=== PATIENT | female | born 1940 | race Caucasian/White ===

== ENCOUNTER → 2017-07-22 | Outpatient (CLI) | payer MEDICARE, OTHER ==
[2017-07-22 10:06] LABS: CH 30.4; CHCM 31.1; HCT 44.2 % (34.0-46.0); HDW 2.33; HGB 13.7 gm/dL (11.4-16.0); Hypochromasia Slight; MCH 30.4 pg (25.0-35.0); MCHC 30.9 g/dL (31.0-37.0); MCV 98.4 fL (80.0-100.0); Mean Platelet Volume 6.7; RBC 4.49 m/uL (3.80-5.40); RDW 12.5 % (11.5-15.5); WBC 6.9 k/uL (3.8-10.6)
[2017-07-22 10:15] LABS: Partial Thromboplastin Time 24.6 sec (22.0-30.0); Prothrombin Time 10.4 sec (9.0-12.0)
[2017-07-22 10:35] LABS: ALT 26 U/L (9-52); AST 19 U/L (14-36); Alkaline Phosphatase 58 U/L (38-126); Anion Gap 8 mmol/L; Blood Urea Nitrogen 15 mg/dL (7-17); Calcium 9.4 mg/dL (8.4-10.2); Carbon Dioxide 27 mmol/L (22-30); Chloride 108 mmol/L (98-107); Glucose 84 mg/dL (74-99); Non-African American GFR(MDRD) 60 (>60 ml/min/1.73 sqM); Potassium 4.8 mmol/L (3.5-5.1); Sodium 143 mmol/L (137-145); Total Bilirubin 0.2 mg/dL (0.2-1.3); Total Protein 6.3 g/dL (6.3-8.2)
[2017-07-22 11:36] LABS: Appearance,Urine Clear (Clear); Bilirubin,Urine Negative (Negative); Glucose,Urine (UA) Negative (Negative); Ketones,Urine Negative (Negative); Leukocyte Esterase,Urine Small (Negative); Mucus,Urine Rare /hpf; Nitrite,Urine Negative (Negative); PH, Urine 5.5 (5.0-8.0); Particle Count 3098; Protein,Urine Negative (Negative); RBC,Urine 4 /hpf (0-5); Squamous Epithelial Cell,Urine 4 /hpf (0-4); UA Billing (MACRO vs. MICRO) MICRO; Urobilinogen,Urine <2.0 mg/dL (<2.0); WBC,Urine 1 /hpf (0-5)
== END | disposition home or self-care (01) ==
LOC: LABWHC1 09:14
PROVIDERS: ATTEND Orthopaedic Surgery
DX: Z01.812 Encounter for preprocedural laboratory examination (principal)
CPT/HCPCS: 36415; 80053; 81001; 85027; 85610; 85730; 87070

== ENCOUNTER 2017-08-13 07:08 | Inpatient (IN) | payer MEDICARE, OTHER ==
[2017-08-06 17:40] VITALS: BMI 31.3
[~2017-08-13 07:08] MED LIST: ACETAMINOPHEN TAB 500 MG TAB PO ONE; DEXAMETHASONE SOD PHOSPHATE 10 MG/ML 1 ML VIAL IV ONE; HYDROmorphone 1 MG/ML 1 ML SYRINGE IVP PRN; MELOXICAM 7.5 MG TAB PO ONE; MIDAZOLAM 2 MG/2 ML VIAL IV PRN; ONDANSETRON 4 MG/2 ML VIAL IVP ONE; TRANEXAMIC ACID 1,000 MG in SODIUM CHLORIDE 0.9% 100 ML IVPB ONE; ceFAZolin IN SWFI 2 GM/20 ML SYRINGE IVP ONE
[2017-08-13] MEDS ORDERED: ROPIVACAINE 246.25 MG, EPINEPHrine 0.5 MG, KETOROLAC 30 MG, cloNIDine HCL/PF 80 MCG, WA... MISCELLANE ONE ×5 (10:47)
[2017-08-13] MEDS ORDERED: LIDOCAINE 1% 20 ML VIAL (10MG/ML) FOR IV START INTRADERMA ONE (13:34)
[2017-08-13] MEDS: LACTATED RINGERS 1,000 ML IV SCH (13:34)
[2017-08-13 13:37] LABS: Glucose,Whole Blood 80 mg/dL (75-99)
[2017-08-13] MEDS ORDERED: MAGNESIUM HYDROXIDE 2,400 MG/10 ML CUP PO PRN (14:40)
[2017-08-13] MEDS ORDERED: NA PHOS,M-B/NA PHOS,DI-BA 133 ML ENEMA RECTAL PRN (14:40)
[2017-08-13] MEDS ORDERED: NALOXONE 0.4 MG/ML 1 ML VIAL IV PRN (14:40)
[2017-08-13] MEDS ORDERED: DIAZEPAM 5 MG TAB PO PRN ×2 (14:40)
[2017-08-13] MEDS ORDERED: ONDANSETRON 4 MG/2 ML VIAL IVP PRN (14:40)
[2017-08-13] MEDS ORDERED: HYDROmorphone 1 MG/ML 1 ML SYRINGE IVP PRN ×2 (14:40)
[2017-08-13] MEDS ORDERED: BISACODYL 10 MG SUPP RECTAL PRN (14:40)
[2017-08-13] MEDS ORDERED: HYDROcodone/APAP 5-325MG 1 EACH TAB PO PRN ×2 (14:40)
[2017-08-13] MEDS ORDERED: ROPIVACAINE 1,100 MG, SODIUM CHLORIDE 0.9% 330 ML MISCELLANE PRN ×2 (15:08)
--- NOTE | 2017-08-13 15:10 | P.ONQ ---
Anesthesiology Proc Note - PNB - Peripheral Nerve Block Performed Right Adductor Canal Indication: Acute Post-Operative Pain, Requested by physician (Dr Alan Humphreys ) Sedation Type: Sedate with meaningful contact maintained Preparation: Sterile Dressing Position: Supine Catheter: Indwelling Needle Types: Other (see comment) (Maria [place] Carmen) Needle Size: 100mm (4") Needle Gauge: 20 Technique: Ultrasound Injectate: 0.5% Ropivacaine (see comment for volume) (20cc) Blood Aspirated: No Pain Paresthesia on Injection Noted: No Resistance on Injection: Normal Events: Uneventful and Well Tolerated
[2017-08-13] MEDS ORDERED: SODIUM CHLORIDE 0.9% 100 ML BAG ONE (15:29)
[2017-08-13] MEDS ORDERED: fentaNYL (PF) 50 MCG/ML 2 ML AMP ONE (15:29)
[2017-08-13] MEDS ORDERED: ePHEDrine SULFATE/0.9% NACL/PF 50 MG/5 ML SYRINGE IV ONE (15:29)
[2017-08-13] MEDS ORDERED: PROPOFOL 10 MG/ML 20 ML VIAL IV ONE (15:29)
[2017-08-13] MEDS ORDERED: TRANEXAMIC ACID 1,000 MG/10 ML VIAL ONE (15:29)
[2017-08-13] MEDS ORDERED: MIDAZOLAM 2 MG/2 ML VIAL ONE (15:29)
[2017-08-13] MEDS ORDERED: ceFAZolin 1,000 MG/50 ML BAG (PMX) IV ONE (15:42)
[2017-08-13] MEDS ORDERED: ceFAZolin 3,000 MG in SODIUM CHLORIDE 0.9% IRRIGATIO 3,000 ML IRRIGATION ONE (16:31)
--- NOTE | 2017-08-13 16:52 | P.OP ---
Date of Procedure: 08/13/17 Preoperative Diagnosis: Severe osteoarthritis right knee Postoperative Diagnosis: Severe osteoarthritis right knee Procedure(s) Performed: Right total knee arthroplasty Implants: [employer] Nephew Oxinium femoral component size 5, right narrow Kenny [employer] Nephew Domi II right nonporous tibial baseplate size 5 Kenny [employer] Nephew size 11 mm Legion XLPE dished articular insert, size 4-5 Kenny [employer] Nephew Domi II resurfacing patellar component, 32 mm All components were cemented using Lenora bone cement.. The articulation is Oxinium on polyethylene. Anesthesia: spinal Surgeon: Alan Humphreys Examination Grader #1: Kat Pool Estimated Blood Loss (ml): 50 Pathology: other (Bone and cartilage) Condition: stable Disposition: PACU Indications for Procedure: After failure of conservative treatment we discussed the surgical and nonsurgical treatment options at length. Patient wishes to proceed with a total knee arthroplasty. Complications specific to this procedure were discussed at length, including but not limited to infection, bleeding, stiffness , and nerve injury. Patient is aware of all these complications and informed consent was obtained Operative Findings: The operative findings are consistent with severe osteoarthritis of the right knee Description of Procedure: Patient was seen in the preoperative area consent was reviewed and operative site was marked with a skin marker. An adductor canal pain catheter was placed by anesthesia in the preoperative area. Patient was then brought to the operating room and given preoperative antibiotics intravenously. A spinal anesthetic was administered by the anesthesia department. A tourniquet was placed on the upper thigh and the lower extremity was prepped and draped in usual sterile fashion. A gram of transexamic acid was given. A universal timeout was then performed which confirmed the patient's name, surgical site, ALLERGIES, and consent. The lower extremity was then exsanguinated and tourniquet was inflated to 250 mmHg. A standard and anterior midline approach to the knee was performed. The skin and subcutaneous tissue was dissected down to the patellar tendon. A medial parapatellar arthrotomy was then performed. The knee was then extended, the patellar was everted, and the knee was again flexed. Anterior horns of both menisci were excised, and a release was performed to the posterior medial aspect of the knee. On gross visual inspection, there was complete loss of articular cartilage in the medial and patellofemoral joint spaces. There was also significant cartilage damage in the lateral compartment. There were multiple periarticular osteophytes which were then removed with a Ronguer. The femoral canal was then opened with the appropriate drill, and the intramedullary femoral cutting guide was then placed and set for 4 of valgus. The distal femoral cutting block was then pinned in place, and the distal femur was then cut. The cutting block was then removed and the cut was checked for flatness. Next, the sizing guide was then placed and set for 3 external rotation based off of the epicondylar axis and Whitesides line. After the femur was sized, the appropriate 4-in-1 cutting block was then pinned in place. The anterior condyles were cut without notching. The posterior and chamfer cuts were performed while protecting the collateral ligaments. The cutting block was then removed, and the femoral canal was plugged with autologous bone. Attention was then directed to the tibia. The remaining ACL was removed with a Ronguer, and the tibia was then gently subluxed forward with a large bent knee retractor. Any remaining menisci was excised. The posterior lateral corner was cauterized in order to cauterize the lateral geniculate artery. The extra medullary tibial cutting guide was then placed, set for the appropriate rotation , slope, and depth of resection. The proximal tibia cutting guide was then pinned in place. Proximal tibia was then cut and sized. Next trials were then placed with the appropriate-sized insert. The knee was able to fully extend and flex to 130 and was stable throughout all range of motion. The knee was then extended, patella everted. Patella was then measured, and then using an osteotomy guide, the patella was cut at the appropriate level. The patella was then measured and drilled and the patella trial was then placed. The knee was then taken through range of motion with the patella trial and the patella tracked normally. The knee was then extended patella trial was then removed and the patella was everted. Knee was then flexed and lug holes were drilled through the femoral trial and the femoral trial was then removed. The tibial was then exposed, and the tibial broach guide was then pinned in place after it was set for the appropriate rotation to allow for the most coverage without overhang. The tibia was then reamed and broached. The cut surfaces of bone were then irrigated with pulsatile lavage. The posterior structures were injected with the ropivacaine solution. The knee was also irrigated with Irrisept solution. The components were then opened, the cement was mixed, and the components were then cemented in place. The cement was allowed to harden with the knee in full extension. While the cement was hardening, the remaining soft tissues were then injected with a ropivacaine solution, which consisted of 246.25 mg of ropivacaine, 0.5 mg of epinephrine, 30 mg of Toradol, 80 g of clonidine, and 48.45 mL of sterile water, for a total of 100 mL of fluid injected. After the cemented hardened. The tourniquet was released, and hemostasis was obtained. A second gram of transexamic acid was given. The knee was again irrigated. The knee was again taken through range of motion and found to be stable throughout all range of motion of 0-130 , and the patella tracked normally. The fascia was then closed with #2 strata fix suture. The subcutaneous tissue was closed with 3-0 Vicryl and 3-0 strata fix. Dermabond glue was used for the skin and placed with the knee in flexion. The patient was placed in a sterile silver dressing. Patient was then transferred to recovery room in stable condition. The insurance account assistant JAQUAN Ayers was required due the complexity surgery and the need for a skilled certified surgical first assistant. She assisted in positioning, draping, retraction, and closure of the wound.
[2017-08-13] MEDS: SODIUM CHLORIDE 0.9% 1,000 ML IV SCH ×2 (18:09→23:52)
--- NOTE | 2017-08-13 18:17 | XR ---
EXAMINATION TYPE: XR knee limited RT DATE OF EXAM: 08/13/2017 COMPARISON: NONE HISTORY: Postop knee surgery. TECHNIQUE: 2 views FINDINGS: There is a right knee prosthesis. Components appear in anatomic position. IMPRESSION: Right knee prosthesis without sign of a complicating process.
[2017-08-13] MEDS ORDERED: BACLOFEN 10 MG TAB PO PRN (20:00)
[2017-08-13] MEDS ORDERED: FLUTICASONE 50MCG/SPRAY NASAL 16GM EA NOSTRIL PRN (20:00)
[2017-08-13] MEDS ORDERED: predniSONE 20 MG TAB PO PRN (20:03)
[2017-08-13] MEDS ORDERED: PSYLLIUM HUSK 100% 6 GM PACKET PO PRN (20:03)
[2017-08-13] MEDS ORDERED: ALBUTEROL NEBULIZED 2.5 MG/3 ML INHALATION PRN (20:04)
[2017-08-13] MEDS: SENNOSIDES-DOCUSATE SODIUM 1 EACH TAB PO SCH (20:10)
[2017-08-13] MEDS: traMADol 50 MG TAB PO PRN (20:10)
[2017-08-13] MEDS: ASPIRIN 325 MG TAB PO SCH (20:11)
[2017-08-13] MEDS: ceFAZolin IN SWFI 2 GM/20 ML SYRINGE IVP SCH (23:52)
[2017-08-14] MEDS: traMADol 50 MG TAB PO PRN ×5 (04:39→23:04)
[2017-08-14] MEDS: LEVOTHYROXINE 50 MCG TAB PO SCH (05:34)
[2017-08-14] MEDS: LACTATED RINGERS 1,000 ML IV SCH (05:35)
[2017-08-14 07:06] LABS: Basophils % (A) 0 %; CH 30.4; CHCM 31.2; Eosinophils # (A) 0.1 k/uL (0-0.7); Eosinophils % (A) 1 %; HCT 36.2 % (34.0-46.0); HDW 2.27; HGB 11.3 gm/dL (11.4-16.0); Luc # (Auto) 0.09; Luc % (Auto) 1; Lymphocytes # (A) 0.7 k/uL (1.0-4.8); Lymphocytes % (A) 5 %; MCH 30.5 pg (25.0-35.0); MCHC 31.1 g/dL (31.0-37.0); Mean Platelet Volume 7.4; Monocytes # (A) 0.7 k/uL (0-1.0); Monocytes % (A) 5 %; Neutrophils # (A) 12.1 k/uL (1.3-7.7); Neutrophils % (A) 89 %; RBC 3.69 m/uL (3.80-5.40); RDW 12.5 % (11.5-15.5); WBC 13.6 k/uL (3.8-10.6); WBC (Perox) 13.87
[2017-08-14] MEDS: SYMBICORT 80-4.5 MCG INHALER INHALATION SCH ×2 (07:34→21:07)
[2017-08-14] MEDS: ASPIRIN 325 MG TAB PO SCH ×2 (07:57→20:12)
[2017-08-14] MEDS: LORATADINE 10 MG TAB PO SCH (07:57)
[2017-08-14] MEDS: PANTOPRAZOLE 40 MG TABLET PO SCH (07:57)
[2017-08-14] MEDS: LISINOPRIL 20 MG TAB PO SCH (07:57)
[2017-08-14] MEDS: ATORVASTATIN 10 MG TAB PO SCH (07:57)
[2017-08-14] MEDS: FLUoxetine HCL 20 MG CAP PO SCH (07:57)
[2017-08-14] MEDS: MELOXICAM 7.5 MG TAB PO SCH (07:58)
[2017-08-14] MEDS: DOMPERIDONE PO SCH ×3 (07:58→09:14)
[2017-08-14] MEDS: amLODIPine 2.5 MG TAB PO SCH (07:58)
[2017-08-14] MEDS: MAGNESIUM OXIDE 400 MG TAB PO SCH (08:01)
[2017-08-14] MEDS: CHOLECALCIFEROL 1,000 UNIT TAB PO SCH (08:02)
[2017-08-14] MEDS: ceFAZolin IN SWFI 2 GM/20 ML SYRINGE IVP SCH (08:12)
[2017-08-14] MEDS ORDERED: POTASSIUM CHLORIDE ER 10 MEQ TAB.ER.PRT PO SCH (09:00)
--- NOTE | 2017-08-14 09:36 | P.CON ---
Consult Note - . Consult date: 08/13/17 Assessment/Plan:: CONSULTATION DATE OF CONSULTATION: 08/13/2017 REASON FOR CONSULTATION: Medical management HISTORY OF PRESENT ILLNESS: 77-year-old female patient of Dr. Alan Humphreys with history of osteoarthritis of the right knee who failed conservative outpatient treatment is status post right total knee arthroplasty. We have been consulted for medical management of same. Patient has chronic stable medical conditions that include asthma, GERD, hyperlipidemia, hypertension, osteoarthritis, lupus with chronic steroid use sleep apnea does not use a CPAP machine, hypothyroidism. REVIEW OF SYSTEMS: GEN.: [None] EYES: [None] HEENT: [None] NECK: [None] RESPIRATORY: [None] CARDIOVASCULAR: [None] GASTROINTESTINAL: [None] GENITOURINARY: [None] MUSCULOSKELETAL: [Osteoarthritis of multiple joints] LYMPHATICS: [None] HEMATOLOGICAL: [History of cervical skin cancer] PSYCHIATRY: [None] NEUROLOGICAL: [None] PAST MEDICAL HISTORY: PAST SURGICAL HISTORY: SOCIAL HISTORY: Smoking use history: 20 years times one pack per day quit in 1986 Alcohol use history: None Drug use history: None reported marital status: Lives with: FAMILY HISTORY: Noncontributory HOME MEDICATIONS: Magnesium gluconate 500 mg by mouth daily Potassium 550 mg by mouth daily Albuterol sulfate 1-2 puffs inhalation every 6 hours when necessary Krill/[place] 3 1 capsule By mouth daily Fluticasone/salmeterol 1 puff inhalation daily when necessary Tramadol 50-100 milligrams by mouth 4 times a day when necessary prednisone 20 mg by mouth daily when necessary amlodipine 2.5 mg by mouth daily Psyllium husk 2 teaspoons by mouth daily when necessary Pantoprazole 40 mg by mouth daily Claritin 10 mg by mouth daily Lisinopril 40 mg by mouth daily Levothyroxine 50 g daily Probiotic 1 capsule daily Flonase 1-2 sprays each nostril daily when necessary Fluoxetine 40 mg by mouth daily Domperidone 25 mg by mouth before meals 3 times a day Docusate sodium 250 mg by mouth daily when necessary Cholecalciferol 2000 units by mouth daily Biotin 10,000 g by mouth daily Baclofen 10 mg by mouth at bedtime when necessary Z-bec 1 tab by mouth daily Atorvastatin 10 mg by mouth daily Senokot S 1 tab by mouth daily Aspirin 325 mg by mouth twice a day ALLERGIES: CODEINE, NICKEL, SULFA VITAL SIGNS: [temperature 97.7, pulse 86, respirations 16, blood pressure 139/79 , oxygen saturation 96% on 2 L BMI noted] GENERAL: [Average built, sitting up, comfortable]. EYES: [Pupils equal. Conjunctiva jermain]l. HEENT: [External appearance of nose and ears normal, oral cavity grossly normal] . NECK: [JVD not raised; masses not palpable]. HEART: [First and second heart sounds are normal; no edema]. LUNGS:[ Respiratory rate normal; clear to auscultation]. ABDOMEN: [Soft, nontender, liver spleen not palpable, no masses palpable]. LYMPHATICS: [No lymph nodes palpable in the axilla and neck]. PSYCH: [Alert and oriented x3; mood and affect jermain]l. NEUROLOGICAL: [Cranial nerves grossly intact; no facial asymmetry, power and sensation grossly intact]. INTEGUMENT: Right knee incision with surgical dressing in place no drainage noted INVESTIGATIONS: No new labs Right knee x-ray right knee prosthesis without sign of, complicating process. ASSESSMENT: -right total knee arthroplasty in a patient with severe osteoarthritis who failed conservative outpatient treatment -Essential hypertension -Coronary artery disease -Hyperlipidemia -chronic constipation -Mild intermittent asthma -Hypothyroidism -Seasonal ALLERGIES -Chronic constipation -Lupus -GERD PLAN: all medications reviewed and reordered, continue current medication and treatment plan, patient to continue to work with PT and OT. Plan of care discussed with patient at bedside she is in agreement we'll follow closely. Thank you Dr. Humphreys for this kind referral and allowing us to participate in the care of your patient. FACSIMILE OPERATOR STATEMENT: Patient was seen and examined by nurse practitioner Yoli Avalos and all elements of the case discussed with attending Dr. Moy.
--- NOTE | 2017-08-14 09:58 | P.PN ---
Subjective Progress Note Date: 08/14/17 Principal diagnosis: Status post total right knee arthroplasty This is a 77-year-old female who is status post total right knee arthroplasty. She is doing well from orthopedic standpoint. She has no new complaints or concerns today. Vital signs and labs are stable. Objective - Vital Signs Vital signs: Vital Signs Temp 98.0 F 08/14/17 07:49 Pulse 79 08/14/17 07:49 Resp 16 08/14/17 07:49 BP 151/74 08/14/17 07:49 Pulse Ox 96 08/14/17 07:49 Intake & Output 08/13/17 08/14/17 08/14/17 18:59 06:59 18:59 Intake Total 1500 422.5 Output Total 50 Balance 1450 422.5 Weight 87.997 kg Intake: IV 1500 Intake, IV Titration 422.5 Amount Sodium Chloride 0.9% 1, 422.5 000 ml @ 65 mls/hr IV . [id number] CASA Rx#:[id number] Output: Estimated Blood Loss 50 Other: Voiding Method Toilet # Voids 1 - Exam This is a pleasant 77-year-old female in no acute distress. She is alert and oriented 3. Exam of the right lower extremity reveals minimal swelling. There is no erythema or ecchymosis. The dressing is clean, dry and intact. She has full foot and ankle motion without difficulty or pain. Neurovascular status to the lower extremity is intact. - Labs CBC & Chem 7: 08/14/17 06:52 Labs: Abnormal Lab Results - Last 24 Hours (Table) 08/14/17 Range/Units 06:52 WBC 13.6 H (3.8-10.6) k/uL RBC 3.69 L (3.80-5.40) m/uL Hgb 11.3 L (11.4-16.0) gm/dL Neutrophils # 12.1 H (1.3-7.7) k/uL Lymphocytes # 0.7 L (1.0-4.8) k/uL Assessment and Plan (1) Primary localized osteoarthritis of right knee Current Visit: Yes Status: Acute Code(s): M17.11 - UNILATERAL PRIMARY OSTEOARTHRITIS, RIGHT KNEE SNOMED Code(s): 691452142 (2) Status post total right knee replacement Current Visit: Yes Status: Acute Code(s): Z96.651 - PRESENCE OF RIGHT ARTIFICIAL KNEE JOINT SNOMED Code(s): 4575561958452 Plan: The clinical findings are discussed the patient. She almost likely be discharged to home tomorrow. Continue physical therapy and routine postoperative care.
--- NOTE | 2017-08-14 11:39 | P.PN ---
Progress Note - Text Progress Note Date: 08/14/17 This is a 77-year-old female status post total knee replacement with adductor Canal catheter infusion of marcaine for acute post operative pain control. The patient's pain has been well-controlled with a combination of this nerve block and oral tramadol. The patient is going to be discharged tomorrow morning. She is alert oriented 3 in no apparent distress she was sitting on a bedside chair when I saw her this morning.
--- NOTE | 2017-08-14 15:16 | PN ---
PROGRESS NOTE DATE OF SERVICE: 08/14/17 PRESENTING COMPLAINT: Knee surgery. INTERVAL HISTORY: Patient is status post knee arthroplasty. No chest pressure, nausea, vomiting. Did work with therapy. REVIEW OF SYSTEMS: Done for constitutional, cardiovascular, GI, pulmonary, musculoskeletal; relevant findings as above. CURRENT MEDICATIONS: Reviewed that include aspirin for DVT. PHYSICAL EXAMINATION: Temperature 98, pulse 79, respirations 16, blood pressure 150/74, pulse ox 96% on 2 L. GENERAL: Propped up in bed comfortable. EYES: Pupils normal. Conjunctivae normal. NECK: JVD not raised. Mass not palpable. RESPIRATORY: Effort. Lungs are clear. CARDIOVASCULAR: 1st and 2nd sounds normal. No edema. ABDOMEN: Soft, nontender. Liver and spleen not palpable. PSYCHIATRY: Alert and oriented x3. Mood and affect normal. EXTREMITIES: Knee in a dressing. INVESTIGATIONS: White count 13.6, hemoglobin 11.3. The patient's hemoglobin was 13.7 on 07/22/17. ASSESSMENT: 1. Right total knee arthroplasty. 2. Obesity; BMI 31.3. 3. Acute postop blood-loss anemia as expected from surgery. 4. Mild intermittent asthma. 5. Gastroesophageal reflux disease. 6. Hyperlipidemia. 7. Essential hypertension. 8. Primary osteoarthritis. 9. Obstructive sleep apnea. 10.Hypothyroid. 11.Chronic stable lupus. 12.Leukocytosis. No evidence for infection. PLAN: Care was discussed with the patient. Continue current medication and treatment plan. Overall patient doing better. Will follow. MMODL / IJN: [id number] /
[2017-08-14] MEDS: HYDROmorphone 1 MG/ML 1 ML SYRINGE IVP PRN (15:23)
[2017-08-14] MEDS: SENNOSIDES-DOCUSATE SODIUM 1 EACH TAB PO SCH (20:12)
[2017-08-14] MEDS: SODIUM CHLORIDE 0.9% 1,000 ML IV SCH (22:20)
[2017-08-14] MEDS: hydrOXYzine PAMOATE 25 MG CAP PO PRN (23:04)
[2017-08-15] MEDS: LACTATED RINGERS 1,000 ML IV SCH (00:06)
[2017-08-15] MEDS: HYDROmorphone 1 MG/ML 1 ML SYRINGE IVP PRN ×2 (01:53→05:09)
[2017-08-15] MEDS: LEVOTHYROXINE 50 MCG TAB PO SCH (05:06)
[2017-08-15] MEDS: DOMPERIDONE PO SCH ×3 (07:23→07:29)
[2017-08-15] MEDS: traMADol 50 MG TAB PO PRN ×2 (07:25→18:24)
[2017-08-15] MEDS: ASPIRIN 325 MG TAB PO SCH ×2 (07:26→19:27)
[2017-08-15] MEDS: PANTOPRAZOLE 40 MG TABLET PO SCH (07:26)
[2017-08-15] MEDS: MELOXICAM 7.5 MG TAB PO SCH (07:27)
[2017-08-15] MEDS: MAGNESIUM OXIDE 400 MG TAB PO SCH (07:27)
[2017-08-15] MEDS: ATORVASTATIN 10 MG TAB PO SCH (07:27)
[2017-08-15] MEDS: FLUoxetine HCL 20 MG CAP PO SCH (07:27)
[2017-08-15] MEDS: LISINOPRIL 20 MG TAB PO SCH (07:28)
[2017-08-15] MEDS: CHOLECALCIFEROL 1,000 UNIT TAB PO SCH (07:28)
[2017-08-15] MEDS: amLODIPine 2.5 MG TAB PO SCH (07:28)
[2017-08-15] MEDS: LORATADINE 10 MG TAB PO SCH (07:28)
[2017-08-15] MEDS: SODIUM CHLORIDE 0.9% 1,000 ML IV SCH (07:29)
[2017-08-15] MEDS: SYMBICORT 80-4.5 MCG INHALER INHALATION SCH ×2 (08:28→20:56)
--- NOTE | 2017-08-15 10:10 | P.PN ---
Subjective Progress Note Date: 08/15/17 Principal diagnosis: Status post total right knee arthroplasty. This is a 77-year-old female who is status post total right knee arthroplasty. She is doing fairly well from orthopedic standpoint. She is complaining of abdominal pain this morning as well as nausea. She has not yet had a bowel movement. She is also complaining of increased right lower leg and knee pain. Vital signs and labs are stable. Objective - Vital Signs Vital signs: Vital Signs Temp 98.5 F 08/15/17 07:22 Pulse 88 08/15/17 07:22 Resp 16 08/15/17 07:25 BP 122/72 08/15/17 07:22 Pulse Ox 96 08/15/17 07:22 Intake & Output 08/14/17 08/15/17 08/15/17 18:59 06:59 18:59 Intake Total 720 Balance 720 Intake: Oral 240 Other 480 Other: Voiding Method Toilet Toilet # Voids 1 1 1 - Exam This is a pleasant 77-year-old female in no acute distress. She is alert and oriented 3. Abdomen is soft with mild generalized tenderness with palpation. Exam of the right lower extremity reveals minimal swelling. There is no erythema or ecchymosis. The dressing is clean, dry and intact. She has Pain with palpation as well as with foot and ankle motion. Neurovascular status to the lower extremity is intact. - Labs CBC & Chem 7: 08/14/17 06:52 Assessment and Plan (1) Primary localized osteoarthritis of right knee Current Visit: Yes Status: Acute Code(s): M17.11 - UNILATERAL PRIMARY OSTEOARTHRITIS, RIGHT KNEE SNOMED Code(s): 453313691 (2) Status post total right knee replacement Current Visit: Yes Status: Acute Code(s): Z96.651 - PRESENCE OF RIGHT ARTIFICIAL KNEE JOINT SNOMED Code(s): 8765477002743 Plan: The clinical findings are discussed the patient. It is recommended that she have a venous Doppler to evaluate for DVT. She will also get Dulcolax suppository. We will hold discharge today. Continue physical therapy and routine postoperative care.
--- NOTE | 2017-08-15 10:48 | US ---
EXAMINATION TYPE: US venous doppler duplex LE RT DATE OF EXAM: 08/15/2017 10:42 AM COMPARISON: NONE CLINICAL HISTORY: RLE pain, R/O DVT. post total knee SIDE PERFORMED: Right TECHNIQUE: The lower extremity deep venous system is examined utilizing real time linear array sonog rosanne with graded compression, doppler sonography and color-flow sonography. VESSELS IMAGED: External Iliac Vein (EIV) Common Femoral Vein Deep Femoral Vein Greater Saphenous Vein * Femoral Vein Popliteal Vein Proximal Calf Veins (* superficial vessels) complex fluid collection right pop fossa measures 4.1 x 1.0 x 2.3 cm Right Leg: Negative for DVT There is a 4.1 x 1 x 2.3 cm right popliteal fossa cyst. IMPRESSION: 1. THIS EXAMINATION IS NEGATIVE FOR DVT WITHIN THE RIGHT LEG. 2. COMPLEX POPLITEAL FOSSA CYST.
[2017-08-15] MEDS: hydrOXYzine PAMOATE 25 MG CAP PO PRN (18:25)
--- NOTE | 2017-08-15 18:35 | PN ---
PROGRESS NOTE DATE OF SERVICE: 08/15/17. ATTENDING NOTE: This patient was seen and examined by me. I discussed with nurse practitioner, Ms. Avalos. The patient is status post knee arthroplasty, had some nausea, which is doing better. Tolerating a diet. Did work with therapy. Tired. PHYSICAL EXAMINATION: Temperature 98.6, pulse 59, blood pressure 120/68. LUNGS: Fair entry. CARDIOVASCULAR: First and second sounds normal. LABS: White count 7.6, hemoglobin 11.3. ASSESSMENT: 1. Right total knee arthroplasty. 2. DVT ruled out by ultrasound. 3. Popliteal cyst. 4. Other medical conditions stable. PLAN: Care was discussed with the patient. Continue medication and treatment plan. MMODL / IJN: [id number] /
[2017-08-15] MEDS: SENNOSIDES-DOCUSATE SODIUM 1 EACH TAB PO SCH (19:27)
--- NOTE | 2017-08-15 19:38 | P.PN ---
Progress Note - Text Progress Note Date: 08/15/17 DATE OF SERVICE: 08/15/2017 PRESENTING COMPLAINT: Knee surgery HISTORY OF PRESENT ILLNESS: 77-year-old female status post right total knee arthroplasty INTERVAL HISTORY: 08/15/2017: Patient seen in follow-up, status post right total knee arthroplasty, continues to have some nausea, appetite is low, has not yet moved her bowels but is passing gas. agreeable to work with physical therapy, complaining of increasing pain to the right knee operative site as well as the lower extremity. Doppler ordered by orthopedics. REVIEW OF SYSTEMS: Done for constitutional ,cardiovascular, GI, pulmonary with relevant findings as above. CURRENT MEDICATIONS Albuterol, Norvasc 2.5 mg by mouth daily, aspirin 325 mg by mouth twice a day, Lipitor 10 mg by mouth daily, baclofen 10 mg by mouth at bedtime when necessary , Dulcolax 10 mg rectal daily when necessary, Symbicort 2 puffs inhalation twice a day, cholecalciferol 2000 units by mouth daily, Valium 2.5 mg by mouth every 8 hours when necessary, Prozac 40 mg by mouth every morning, Vistaril 25 mg by mouth every 4 hours when necessary, Synthroid 50 g by mouth daily Zestril 40 mg by mouth daily. Claritin 10 mg by mouth daily, milk of magnesia 2400 mg by mouth daily, mag oxide 40 mg by mouth daily 7.5 mg by mouth daily Zofran 4 mg IV push every 8 hours, Protonix 40 mg by mouth daily, and is on 20 mg by mouth daily, Metamucil 6 g by mouth daily, ropivacaine/On-Q pump, Senokot S, Ultram 50 mg by mouth every 6 hours, PHYSICAL EXAM VITAL SIGNS: Temperature 98.5, pulse 88, respiratory rate 16, blood pressure 122/72, oxygen saturation 96% on room air. GENERAL APPEARANCE: Lying in bed, appears uncomfortable. EYES: Pupils equal. Conjunctiva normal. NECK: JVD not raised. Mass not palpable. RESPIRATORY: Respiratory effort normal. Lungs diminished with some crackles noted to the left base to auscultation. CARDIOVASCULAR: First and second sounds normal. No edema. ABDOMEN: Soft. Liver and spleen not palpable. No tenderness. No mass palpable. PSYCHIATRY: Alert and oriented x3. Mood and affect normal. INTEGUMENT: Swelling noted, Right knee incision curved with a dry dressing no drainage noted INVESTIGATIONS: No new labs Venous Doppler study right lower extremity: Negative for DVT, complex popliteal fossa cyst. ASSESSMENT: -Right total knee arthroplasty. -Leukocytosis likely reactive from surgery -DVT ruled out by ultrasound. -Popliteal cyst. -Essential hypertension -Coronary artery disease -Hyperlipidemia -Chronic constipation -Mild intermittent asthma -Hypothyroidism -Seasonal ALLERGIES -Lupus -GERD PLAN: Tentative plan today was to discharge patient but in light of increasing pain to the right lower extremity and no bowel movement discharge held. Patient received cathartics to encourage bowel movement, continue physical therapy. We will continue to follow closely. Plan of care discussed with the patient at bedside she is in agreement. FOOD PREP WORKER statement: Patient was seen and examined by nurse practitioner Yoli Avalos and all elements of the case discussed with attending Dr. Moy
[2017-08-16] MEDS: SODIUM CHLORIDE 0.9% 1,000 ML IV SCH (00:38)
[2017-08-16] MEDS: LACTATED RINGERS 1,000 ML IV SCH (00:38)
[2017-08-16] MEDS: hydrOXYzine PAMOATE 25 MG CAP PO PRN (05:06)
[2017-08-16] MEDS: traMADol 50 MG TAB PO PRN ×2 (05:07→12:12)
[2017-08-16] MEDS: LEVOTHYROXINE 50 MCG TAB PO SCH (05:07)
[2017-08-16 06:57] LABS: Basophils % (A) 0 %; CH 30.1; CHCM 31.2; Eosinophils # (A) 0.1 k/uL (0-0.7); Eosinophils % (A) 1 %; HCT 35.1 % (34.0-46.0); HGB 10.8 gm/dL (11.4-16.0); Luc # (Auto) 0.07; Luc % (Auto) 1; Lymphocytes # (A) 0.9 k/uL (1.0-4.8); Lymphocytes % (A) 9 %; MCH 29.9 pg (25.0-35.0); MCHC 30.8 g/dL (31.0-37.0); MCV 97.1 fL (80.0-100.0); Mean Platelet Volume 7.7; Monocytes # (A) 0.7 k/uL (0-1.0); Monocytes % (A) 8 %; Neutrophils # (A) 8.1 k/uL (1.3-7.7); Neutrophils % (A) 82 %; RBC 3.62 m/uL (3.80-5.40); RDW 13.3 % (11.5-15.5); WBC 9.9 k/uL (3.8-10.6); WBC (Perox) 10.45
[2017-08-16 07:54] VITALS: BP 167/80; PULSE 89; RESP 15; TEMP 99.7
--- NOTE | 2017-08-16 08:11 | P.DS ---
Providers Date of admission: 08/13/17 12:51 Expected date of discharge: 08/16/17 Attending physician: Alan Humphreys Consults: 08/13/17 14:40 Consult Physician Routine Consulting Provider: Wilver Moy Consult Reason/Comments: medical management Do you want consulting provider notified?: Yes Primary care physician: Michael Martinesver - Discharge Diagnosis(es) (1) Primary localized osteoarthritis of right knee Current Visit: Yes Status: Acute (2) Status post total right knee replacement Current Visit: Yes Status: Acute Hospital Course: This is a 77-year-old female with known history of degenerative arthritis of the right knee. The patient presents for evaluation. After discussion and consideration patient elects to proceed with total knee arthroplasty. The patient is seen preoperatively by Dr. Humphreys and cleared for surgery. Patient is admitted to [facility] on 08/13/2017 for total knee arthroplasty. The procedures performed without complication or sequelae. Patient had a venous Doppler of the right lower extremity on 08/15/2017 that was negative for DVT. The patient is doing well postoperatively. Labs and vital signs are stable on day of discharge. On day of discharge patient's knee incision is healing well. There is minimal erythema. There is no drainage noted at this time. There is minimal soft tissue swelling to the knee. Patient has full foot and ankle motion without difficulty or pain. Neurovascular status to the right lower extremity is intact. Patient is discharged home in good condition. Please see med rec for accurate list of home medications. Plan - Discharge Summary Discharge Rx Participant: No New Discharge Prescriptions: New Aspirin 325 mg PO BID #60 tab Sennosides-Docusate Sodium [Senokot-S] 1 tab PO BID #60 tablet No Action predniSONE 20 mg PO DAILY PRN PRN Reason: LUPUS SX Fluticasone Propionate [Flonase Allergy Relief] 1 - 2 sprays EA NOSTRIL DAILY PRN PRN Reason: ALLERGY SX Pantoprazole [Protonix] 40 mg PO DAILY Docusate Sodium [Dok] 250 mg PO DAILY PRN PRN Reason: Constipation L.acidoph,Paracasei, B.lactis [Probiotic] 1 cap PO DAILY Psyllium Husk (with Sugar) [Metamucil Powder] 2 tsp PO DAILY PRN PRN Reason: Constipation traMADol HCL [Ultram] 50 - 100 mg PO QID PRN PRN Reason: Pain Loratadine [Claritin] 10 mg PO DAILY Atorvastatin [Lipitor] 10 mg PO DAILY Levothyroxine Sodium [Synthroid] 50 mcg PO DAILY Krill/Shoshone-3/Dha/Epa/Lipids [Krill Oil 350 mg Softgel] 1 cap PO DAILY FLUoxetine HCL 40 mg PO QAM Lisinopril 40 mg PO DAILY Biotin 10,000 mcg PO DAILY Baclofen [Lioresal] 10 mg PO HS PRN PRN Reason: Pain B Complex-Vit C-Vit E-Zinc [Z-Bec] 1 tab PO DAILY amLODIPine [Norvasc] 2.5 mg PO DAILY Albuterol Sulfate [Proair Hfa] 1 - 2 puff INHALATION RT-Q6H PRN PRN Reason: ASTHMA SX Fluticasone/Salmeterol [Advair 250-50 Diskus] 1 puff INHALATION RT-DAILY PRN PRN Reason: ASTHMA SX Domperidone 25 Mg 25 mg PO AC-TID Cholecalciferol (Vitamin D3) [Vitamin D3] 2,000 unit PO DAILY Magnesium Gluconate [Magonate] 500 mg PO DAILY Potassium 550mg 550 mg PO DAILY Discharge Medication List Albuterol Sulfate [Proair Hfa] 1 - 2 puff INHALATION RT-Q6H PRN 08/06/17 [ History] Atorvastatin [Lipitor] 10 mg PO DAILY 08/06/17 [History] B Complex-Vit C-Vit E-Zinc [Z-Bec] 1 tab PO DAILY 08/06/17 [History] Baclofen [Lioresal] 10 mg PO HS PRN 08/06/17 [History] Biotin 10,000 mcg PO DAILY 08/06/17 [History] Cholecalciferol (Vitamin D3) [Vitamin D3] 2,000 unit PO DAILY 08/06/17 [History] Docusate Sodium [Dok] 250 mg PO DAILY PRN 08/06/17 [History] Domperidone 25 Mg 25 mg PO AC-TID 08/06/17 [History] FLUoxetine HCL 40 mg PO QAM 08/06/17 [History] Fluticasone Propionate [Flonase Allergy Relief] 1 - 2 sprays EA NOSTRIL DAILY PRN 08/06/17 [History] Fluticasone/Salmeterol [Advair 250-50 Diskus] 1 puff INHALATION RT-DAILY PRN 12/18 [History] Krill/Shoshone-3/Dha/Epa/Lipids [Krill Oil 350 mg Softgel] 1 cap PO DAILY 08/06/17 [History] L.acidoph,Paracasei, B.lactis [Probiotic] 1 cap PO DAILY 08/06/17 [History] Levothyroxine Sodium [Synthroid] 50 mcg PO DAILY 08/06/17 [History] Lisinopril 40 mg PO DAILY 08/06/17 [History] Loratadine [Claritin] 10 mg PO DAILY 08/06/17 [History] Pantoprazole [Protonix] 40 mg PO DAILY 08/06/17 [History] Psyllium Husk (with Sugar) [Metamucil Powder] 2 tsp PO DAILY PRN 08/06/17 [ History] amLODIPine [Norvasc] 2.5 mg PO DAILY 08/06/17 [History] predniSONE 20 mg PO DAILY PRN 08/06/17 [History] traMADol HCL [Ultram] 50 - 100 mg PO QID PRN 08/06/17 [History] Aspirin 325 mg PO BID #60 tab 08/13/17 [Rx] Magnesium Gluconate [Magonate] 500 mg PO DAILY 08/13/17 [History] Potassium 550mg 550 mg PO DAILY 08/13/17 [History] Sennosides-Docusate Sodium [Senokot-S] 1 tab PO BID #60 tablet 08/13/17 [Rx] Follow up Appointment(s)/Referral(s): Alan Humphreys DO [Doctor of Osteopathic Medicine] - 2 Weeks Ambulatory/Diagnostic Orders: Continuous Passive Motion (CPM) Machine [DME.AMB1] Time Frame: 3 Weeks, Location : Determined By Patient Activity/Diet/Wound Care/Special Instructions: Weightbearing as tolerated with a walker CPM 5-6h daily Leave dressing intact. May be removed by home care nurse in 7 days, 08/20/2017. May shower with dressing on. [facility] with questions or concerns [phone] Discharge Disposition: HOME WITH HOME HEALTH SERVICES
[2017-08-16] MEDS: MELOXICAM 7.5 MG TAB PO SCH (08:23)
[2017-08-16] MEDS: PANTOPRAZOLE 40 MG TABLET PO SCH (08:24)
[2017-08-16] MEDS: LORATADINE 10 MG TAB PO SCH (08:24)
[2017-08-16] MEDS: amLODIPine 2.5 MG TAB PO SCH (08:25)
[2017-08-16] MEDS: FLUoxetine HCL 20 MG CAP PO SCH (08:25)
[2017-08-16] MEDS: ASPIRIN 325 MG TAB PO SCH (08:25)
[2017-08-16] MEDS: ATORVASTATIN 10 MG TAB PO SCH (08:25)
[2017-08-16] MEDS: DOMPERIDONE PO SCH (08:25)
[2017-08-16] MEDS: LISINOPRIL 20 MG TAB PO SCH (08:26)
[2017-08-16] MEDS: SYMBICORT 80-4.5 MCG INHALER INHALATION SCH (08:46)
[2017-08-16] MEDS: CHOLECALCIFEROL 1,000 UNIT TAB PO SCH (12:12)
[2017-08-16] MEDS: MAGNESIUM OXIDE 400 MG TAB PO SCH (12:12)
--- NOTE | 2017-08-16 17:31 | PN ---
PROGRESS NOTE DATE OF SERVICE: August 16, 2017. ATTENDING NOTE: This patient was seen and examined by me. I discussed with nurse practitioner, Ms. Avalos. The patient's nausea is much improved. Tolerated her breakfast. Did work with therapy. PHYSICAL EXAMINATION: Temperature 99.7, pulse 89, blood pressure 167/80, pulse ox 93% on room air. Lungs are clear. Cardiovascular first and second sounds normal. No edema. White count 9.9, hemoglobin 10.8. ASSESSMENT: Status post right total knee arthroplasty, doing well. Care was discussed the patient and family at the bedside. Should follow up with family doctor upon discharge. MMODL / IJN: [id number] /
--- NOTE | 2017-08-16 18:52 | P.PN ---
Progress Note - Text Progress Note Date: 08/16/17 DATE OF SERVICE: 08/16/2017 PRESENTING COMPLAINT: Knee surgery HISTORY OF PRESENT ILLNESS: 77-year-old female status post right total knee arthroplasty INTERVAL HISTORY: 08/16/2017: Patient seen in follow-up, status post right total knee arthroplasty no further nausea, appetite is slowly improving. Passing gas but no BM. Agreeable to work with physical therapy, ambulatory with assistance and walker. pain is well controlled has an On-Q pump. 08/15/2017: Patient seen in follow-up, status post right total knee arthroplasty, continues to have some nausea, appetite is low, has not yet moved her bowels but is passing gas. agreeable to work with physical therapy, complaining of increasing pain to the right knee operative site as well as the lower extremity. Doppler ordered by orthopedics. REVIEW OF SYSTEMS: Done for constitutional ,cardiovascular, GI, pulmonary with relevant findings as above. CURRENT MEDICATIONS Albuterol, Norvasc 2.5 mg by mouth daily, aspirin 325 mg by mouth twice a day, Lipitor 10 mg by mouth daily, baclofen 10 mg by mouth at bedtime when necessary , Dulcolax 10 mg rectal daily when necessary, Symbicort 2 puffs inhalation twice a day, cholecalciferol 2000 units by mouth daily, Valium 2.5 mg by mouth every 8 hours when necessary, Prozac 40 mg by mouth every morning, Vistaril 25 mg by mouth every 4 hours when necessary, Synthroid 50 g by mouth daily Zestril 40 mg by mouth daily. Claritin 10 mg by mouth daily, milk of magnesia 2400 mg by mouth daily, mag oxide 40 mg by mouth daily 7.5 mg by mouth daily Zofran 4 mg IV push every 8 hours, Protonix 40 mg by mouth daily, and is on 20 mg by mouth daily, Metamucil 6 g by mouth daily, ropivacaine/On-Q pump, Senokot S, Ultram 50 mg by mouth every 6 hours, PHYSICAL EXAM VITAL SIGNS: Gen. he 9.7, pulse 89, respiratory rate 15, blood pressure 167/80, oxygen saturation 93% on room air. GENERAL APPEARANCE: Sitting up on the edge of the bed appears uncomfortable. EYES: Pupils equal. Conjunctiva normal. NECK: JVD not raised. Mass not palpable. RESPIRATORY: Respiratory effort normal. Lungs diminished with some crackles noted to the left base to auscultation. CARDIOVASCULAR: First and second sounds normal. No edema. ABDOMEN: Soft. Liver and spleen not palpable. No tenderness. No mass palpable. PSYCHIATRY: Alert and oriented x3. Mood and affect normal. INTEGUMENT: Swelling noted, Right knee incision covered with a dry dressing no drainage noted INVESTIGATIONS: Hemoglobin 10.8 Venous Doppler study right lower extremity: Negative for DVT, complex popliteal fossa cyst. ASSESSMENT: -Right total knee arthroplasty. -Leukocytosis likely reactive from surgery -DVT ruled out by ultrasound. -Popliteal cyst. -Essential hypertension -Coronary artery disease -Hyperlipidemia -Chronic constipation -Mild intermittent asthma -Hypothyroidism -Seasonal ALLERGIES -Lupus -GERD PLAN: Patient's condition overall has improved, from medical standpoint patient is stable for discharge. LIFE SPECIALIST statement: Patient was seen and examined by nurse practitioner Yoli Avalos and all elements of the case discussed with attending Dr. Moy
== END 2017-08-16 14:00 | disposition home health service (06) | DRG 470 ==
LOC: 2ORMAIN 12:51 → 3SUR 17:15
PROVIDERS: ADMIT Orthopaedic Surgery; ATTEND Orthopaedic Surgery
PROC: 0SRC069 Replacement of Right Knee Joint with Oxidized Zirconium on Polyethylene Synthetic Substitute, Cemented, Open Approach (ICD-10-PCS; principal; 2017-08-13 15:05)
DX: M17.11 Unilateral primary osteoarthritis, right knee (principal); D62 Acute posthemorrhagic anemia; M32.9 Systemic lupus erythematosus, unspecified; I10 Essential (primary) hypertension; D72.829 Elevated white blood cell count, unspecified; E03.9 Hypothyroidism, unspecified; E66.9 Obesity, unspecified; E78.5 Hyperlipidemia, unspecified; G47.33 Obstructive sleep apnea (adult) (pediatric); I25.10 Atherosclerotic heart disease of native coronary artery without angina pectoris; J45.20 Mild intermittent asthma, uncomplicated; K21.9 Gastro-esophageal reflux disease without esophagitis; K59.09 Other constipation; M71.20 Synovial cyst of popliteal space [Baker], unspecified knee; R10.9 Unspecified abdominal pain; R11.0 Nausea; M81.0 Age-related osteoporosis without current pathological fracture; G89.4 Chronic pain syndrome; F32.9 Major depressive disorder, single episode, unspecified; F41.9 Anxiety disorder, unspecified; M21.061 Valgus deformity, not elsewhere classified, right knee; Z68.31 Body mass index [BMI] 31.0-31.9, adult; Z79.52 Long term (current) use of systemic steroids; Z79.82 Long term (current) use of aspirin; Z79.899 Other long term (current) drug therapy; Z87.891 Personal history of nicotine dependence; Z88.5 Allergy status to narcotic agent; Z88.2 Allergy status to sulfonamides; Z85.41 Personal history of malignant neoplasm of cervix uteri; Z82.49 Family history of ischemic heart disease and other diseases of the circulatory system
CPT/HCPCS: 85025; 88300; 94640; 94760